=== PATIENT | male | born 1965 | race Caucasian/White ===

== ENCOUNTER 2024-12-16 09:48 | Emergency (ER) | payer OTHER, SELFPAY ==
--- OUTSIDE RECORDS SUMMARY | 2024-12-16 09:49 | XMS_ITS | Clinical Summary ---
Author Organization [facility] Address [address] , [address] [place] [address] Phone Care Team Providers Care Formation Fracturing Operator Name Role Phone [facility] Unavailable Unava ilable Conditions or Problems Problem Name Problem Code Onset Date Status Entry Date Provider Comment Standard Description Annotate Peripheral polyneuropathy [id number] (SNOMED CT) Active 05/25 Jesse Dejesus MD Peripheral nerve disease Medications No information available. Medications Administered No information available. Allergies, Adverse Reactions, Alerts No information available. Results Date Name Value Unit Range Flag Description Internal Other: Authorizatio n - OBS [email or web address] Yes Authoriza tion: Release of Information - Authorize [facility] - Payment and Healthcare Operations ROIAUTHOTHER Yes Authoriz ation: Release of Information - Authorize Others/Insurance - Payment and Healthcare Operations HIECONSENT Yes Consent To Release information to the Health Information Exchange (HIE) [email or web address] Yes Authorizat ion: Authorization for [facility] to leave messages, voicemail, send text messages, send emails AUTHRELHCARE Yes Authoriz ation: Release/Retrieval of Information to/from Healthcare Facilities, Pharmacy Benefit Payers and Providers AUTHPRIVPRAC Yes Authoriz ation: Notice of privacy practices AUTHBENEFIT Yes Authoriza tion: Assignment of Benefits and Payment Agreement Plan of Care No information available. Procedures Code Procedure Name Date Entry Date CPT-10165 Nerve Conduction 13 or more studies 05/25 CPT-02512 EMG with NCS (5+ muscles) - 2 limbs 05/25 Vital Signs No information available. Immunizations No information available. Advance Directives No information available.
--- OUTSIDE RECORDS SUMMARY | 2024-12-16 09:50 | XMS_ITS | Clinical Summary ---
Author Organization [facility] Address [place], [place] [address] Care Team Providers Care Casualty Claims Supervisor Name Role Phone Steven Guerrero MD Unavailable Johnnie Sharma MD Primary Care Provider Allergies Active Allergy Reactions Criticality Noted Date Comments Lisinopril Cough 12/24/2017 Medications rosuvastatin (CRESTOR) 40 mg tabletIndications:H yperlipidemia, unspecified hyperlipidemia type Take 1 Tablet (40 mg) by mouth at bedtime. 90 Tablet 3 4 Active metoprolol succinate (TOPROL XL) 50 mg sustained-release tabletIndications:E ssential hypertension Take 1 Tablet (50 mg) by mouth once daily. 90 Tablet 3 4 Active allopurinoL (ZYLOPRIM) 300 mg tabletIndications:H istory of gout Take 1 Tablet (300 mg) by mouth once daily. 90 Tablet 5 4 Active omeprazole (PRILOSEC) 20 mg Delayed-Release capsuleIndications: Gastroesophageal reflux disease, unspecified whether esophagitis present Take 1 Capsule (20 mg) by mouth once daily before a meal. 90 Capsule 3 4 Active Active Problems Problem Noted Date Diagnosed Date Colon polyp 08/15/2024 Overview (08/15/2024): Colonoscopy 08/2024 large TA, repeat in 3 years Alcohol dependence with unsp ecified alcohol-induced disorder 07/25/2024 Syncope 04/05/2022 Myoclonic jerking 04/05/2022 Orthostatic hypotension 04/05/2022 Hypomagnesemia 04/05/2022 Peripheral neuropathic gait 04/05/2022 Tremor 04/05/2022 Activity intolerance related to fatigue 04/05/20 22 Macrocytic anemia 04/05/2022 Right knee DJD 04/05/2022 Prolonged Q-T interval on ECG 04/05/2022 Vitamin D deficiency 10/03/2021 Hyperlipidemia 06/29/2020 Pre-diabetes 06/29/2020 HTN (hypertension) 01/14/2018 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 Gout, unspecified 09/08/2008 Encounters Date Type Department Care Team Description 10/20/2024 3:10 PM 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 Office Visit [address] [place] [address] Johnnie Sharma MD Derm Problem (Skin lesion on right side of face in methodist area) 10/20/2024 Travel 10/09/2024 Lab Requisition [facility] [phone] Marcio Rubio MD 10/08/2024 Orders Only [facility] Scanner 1 scan: (1-Ord) [facility], EXCISION OF RT FACIAL CYST, 10/08/2024 10/08/[address] [address] Johnnie Sharma MD Appointment Request from Last 3 Months Immunizations Name Administration Dates Next Due COVID-19 vaccine (Tap2print-Bio NTech 30mcg/0.3mL) 12YO+ BIVALENT PF, MDV 01/31/2023 COVID-19 vaccine (Pfizer-Bio NTech 30mcg/0.3mL) PF, MDV 09/27/2021 INFLUENZA, IIV3 PF (AGE >= 6 MO) 09/09/2024 Influenza, IIV4 09/18/2023, 2,08/12/2021,09/07/20 14 Influenza, IIV4 (=>6mos) MDV 08/16/2020,08/18/20 19 Tdap 07/25/2024,07/28/2013 Zoster (Shingrix-RZV, recombinant) 12/01/2021, Family History Medical History Relation Name Comments Good Health Father Heart attack Mother Stroke Mother Good Health Sister Heart failure No Family History Relation Name Status Comments Daughter Alive x1 Father Alive Maternal Grandfather Maternal Grandmother Mother Paternal Grandfather Paternal Grandmother Sister Alive x1 Son Alive x1 Social History Tobacco Use Types Packs/Day Years Used Date Smoking Tobacco: Never Smokeless Tobacco: Never Tobacco Cessation:Counseling Given: Yes Alcohol Use Standard Drinks/Week Comments Yes 0 (1 standard drink = 0.6 oz pur e alcohol) socially - 3 drinks weekly PHQ-2 Answer Date Recorded PHQ-2 TOTAL SCORE 0 09/22/2022 Financial Resource Strain Answer Date R ecorded Difficulty of Paying Living Expenses Not on file 11/05/2021 Difficulty of Paying Living Expenses Not on file 11/05/2021 Sex and Gender Information Value Date Recorded Sex Assigned at Not on file Legal Sex Male 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 Gender Identity Not on file Sexual Orientation Not on file Occupation Industry Job Start Date 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 [employer] Not on file Not on file Not on file laid off 04/2022 Not on file Not on file Not on file Obstetrics History Last Filed Vital Signs Vital Sign Reading Time Taken Comments Blood Pressure 110/70 10/20/2024 3:07 PM 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[employer]ER Pulse 84 10/20/2024 3:07 PM 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[employer]ER Temperature 36.4 C (97.6 F) 09/25/2023 8:35 AM 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[employer]ER Respiratory Rate 14 09/25/2023 3:00 PM 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[employer]ER Oxygen Saturation 96% 07/25/2024 1:24 PM CDT Inhaled Oxygen Concentration - - Weight 89.9 kg (198 lb 3.4 oz) 10/20/2024 3:07 P M 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[employer]ER Height 185.4 cm (6' 1) 10/20/2024 3:07 PM 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[employer]ER Body Mass Index 26.15 10/20/2024 3:07 PM 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[employer]ER Plan of Treatment Upcoming Encounters Date Type Department Care Team (Late st Contact Info) Description 12/19/2024 10:50 AM 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[employer]ER Office Visit [address] [place] [address] Johnnie Sharma MD [address] [place] [address] Scheduled Procedures Name Priority Associated Diagnoses Date/Ti me SURGICAL PROCEDURE (TYPE PROCEDURE DESCRIPTION BELOW) Encounter for screening colonoscopy Health Maintenance Due Date Last Done Comments Pneumococcal series for age 50+ (1 of 2 - PCV) 1986 Depression screening for age 12+ 09/25/2023 09/25/2022, 09/25/2022, 09/22/2022, Additional history exists BMI (ht and wt on same day) for age 18+ 10/20/2025 10/20/2024, 07/25/2024, 07/26/2023, Additional history exists Colonoscopy through age 75 08/13/2027 08/13/2024 Lipids for age 45-75 04/18/2029 04/18/2024, 12/14/2022, 09/22/2022, Additional history exists Tetanus booster 07/25/2034 07/25/2024, 07/28/2013 Zoster (shingles) series for age 50+ Completed 12/01/2021, 08/12/2021 HIV for age 15-65 Completed 09/22/2022 Hepatitis C screening for ag e 18-79 Completed 09/22/2022 Tdap Completed 07/25/2024, 07/28/2013 COVID-19 vaccine series Completed 09/09/20, 09/18/2023, 01/31/2023, Additional history exists Influenza for age 50-64 Completed 09/09/20, 09/18/2023, 08/10/2022, Additional history exists Procedures Procedure Name Priority Date/Time Associated Diagnosis Comments LAB TRACKING EVENT Routine 10/08/2024 11 :00 AM 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[employer]ER PATH TISSUE EXAM Routine 10/08/2024 11:0 0 AM 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ACHER SCAN-OPERATIVE/PROC EDURE REPORT 10/08/2024 12:00 AM 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ACHER COLONOSCOPY SCREENING Routine 08/13/2024 12:00 AM CDT Screen for colon cancer LIPID PANEL W REFLEX MEASURED LDL Routine 04/18/2024 12:51 PM CDT Vitamin D deficiency Hypercholesterolemia ANTI HIV 1/2 Routine 09/22/2022 1:49 PM 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[employer]ER Screening for HIV (human immunodeficiency virus) ANTI HCV Routine 09/22/2022 1:49 PM 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ACHER Need for hepatitis C screening test from Last 3 Months or Most Recently Relevant to Health Maintenance Results * LAB TRACKING EVENT (10/08/2024 11:00 AM 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ACHER) Other (Other) Client Collect / Unknown 10/08/2024 11:00 AM 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ACHER 10/09/2024 6:21 AM 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ACHER us Marcio Rubio MD LAB BILL ONLY Final Resu lt [facility] [address] [place] [address], [place] * PATH TISSUE EXAM (10/08/2024 11:00 AM 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ACHER) Case Report Pathology Report Case: [id number] Authorizing Provider: Marcio Rubio MD Collected: 10/08/2024 1100 Ordering Location: [facility] Received: 10/09/2024 1127 Pathologist: Hortencia Randolph MD Specimen: Right Cheek 10/13/2024 10:21 AM [facility] Final Diagnosis SKIN, RIGHT CHEEK, EXCISION: 1. Inflamed epidermal inclusion cyst, with surrounding fibrosis consistent with partial rupture 2. Negative for malignancy 10/13/2024 10:21 AM [facility] Clinical Information [facility] 10/13/2024 10:21 AM [facility] Gross Description A) Received in formalin, labeled with the patient's name and date of , is a 2.1 x 0.8 x 1.3 cm un-oriented skin ellipse. The specimen is inked green, is serially sectioned and entirely submitted: 1. Tips 2-3. Central portion DS 10/09/2024 10/13/2024 10:21 AM 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ACHER [facility] Microscopic Description The final diagnosis is based on microscopic examination of appropriate sections of all specimens. There is a cystic collection of non-atypical keratinizing squamous epithelium within the dermis. The presence of green ink is confirmed on tissue sections. 10/13/2024 10:21 AM 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ACHER [facility] Additional Information Interpreted at [facility] - [address] [facility] [address], [place] [address] 10/13/2024 10:21 AM 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ACHER [facility] Other (Right Cheek) 10/08/2024 11:00 AM 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ACHER 10/09/2024 11:27 AM 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ACHER us Marcio Rubio MD PATHOLOGY/CYTOLOGY Final R esult [facility] [address] [place] [address], [place] * SCAN-OPERATIVE/PROCEDURE REPORT (10/08/2024 12:00 AM 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ACHER) us Scanner OTHER Final Result * COLONOSCOPY SCREENING (08/13/2024 12:00 AM CDT) us Agustín Escobar MD GI PROCEDURE ORD Final Re sult * LIPID PANEL W REFLEX MEASURED LDL (04/18/2024 12:51 PM CDT) CHOLESTEROL,TOTAL 146 100 - 199 mg/dL 04/18/2024 1:53 PM CDT [facility] Comment: Cholesterol, Total Reference Ranges Desirable <200 mg/dL Borderline 200-239 mg/dL High >=240 mg/dL TRIGLYCERIDES 95 <150 mg/dL 04/18/2024 1:53 PM CDT [facility] HDL CHOLESTEROL 83 >40 mg/dL 1:53 PM CDT [facility] NON-HDL CHOLESTEROL 63 <145 mg/dl 04/18/2024 1:53 PM CDT [facility] CHOL/HDL RATIO 1.76 <4.50 04/18/2024 1:53 PM CDT [facility] LDL CHOLESTEROL 44 <=130 mg/dL 04/18/2024 1:53 PM T [facility] VLDL CHOLESTEROL 19 <=30 mg/dL 04/18/2024 1:53 PM CDT [facility] PROVIDER ORDERED STATUS RANDOM 04/18/2024 1:53 PM CDT [facility] Blood BLOOD SPECIMEN / Unknown Venipuncture / Unknown 04/18/2024 12:51 PM CDT 04/18/2024 12:51 PM CDT Steven Guerrero MD CHEMISTRY Final Resu lt [facility] [address] [place] [address] * ANTI HCV (09/22/2022 1:49 PM 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ACHER) Pathologist [facility] HEPATITIS C ANTIBODY Non-React chrissie Non-React chrissie 09/23/2022 2:44 PM 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ACHER [facility] Comment:Antibodies to HCV no t detected; does not exclude the possibility of exposure to HCV. Blood BLOOD SPECIMEN / Unknown Venipuncture / Unknown 09/22/2022 1:49 PM 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ACHER 09/22/2022 1:53 PM 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ACHER Stephanie Valdez NP SEND OUTS Final Result [facility] [address] [place] [address], [place] * ANTI HIV 1/2 (09/22/2022 1:49 PM 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ACHER) Pathologist [facility] HIV-1/HIV-2 ANTIBODY Non-Reacti ve Non-Reacti ve 09/23/2022 2:41 PM 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ACHER [facility] Comment:HIV-1 p24 and HIV-1/ HIV-2 Ab not detected. Blood BLOOD SPECIMEN / Unknown Venipuncture / Unknown 09/22/2022 1:49 PM 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ACHER 09/22/2022 1:53 PM 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ACHER us Stephanie Valdez DIE REPAIRER TRIMMER DIES SEND OUTS Final Result [facility] [address] [place] [address], from Last 3 Months or Most Recently Relevant to Health Maintenance Insurance [facility] Advance Directives * Full Code (Latest Code Status on File) Date Activated Date Inactivated Comments 04/05/2022 3:06 PM 04/05/2022 11:45 PM Question Answer Comments Code Status Discussion: Unable to Assess Preferences, Provider to review later Care Teams Casualty Claims Supervisor Relationship Specialty Start Date End Date Johnnie Sharma MD [address] [facility] [place] [address] PCP - General Family Practice 10/20/24 Steven Guerrero MD [address] [place] [address] Consulting Physician Nephrology 09/11/23
--- OUTSIDE RECORDS SUMMARY | 2024-12-16 09:50 | XMS_ITS | Continuity of Care Document ---
Author Organization [facility] Address [address] [place] [address] Phone Care Team Providers Care Mat Inspector Name Role Phone Du Lofton DO Unavailable Unavailable Medications Medication Instructions Dosage Effective Dates (start - stop) Status Comments allopurinol 300 mg tablet Denied take 1 tablet by oral route every day - Active Patient needs to contact clinic. colchicine 0.6 mg tablet take 1 Tablet by oral route daily - Active atorvastatin 10 mg tablet take 1 tablet by oral route every day 10 MG - Active lisinopril 10 mg tablet take 1 tablet by oral route every day 10 MG - Active Procedures Procedure Date Office/Outpatient Visit, Est Routine Venipuncture Assay Of Serum Albumin Assay Of Creatinine Transferase (Ast) (Sgot) Alanine Amino (Alt) (Sgpt) Assay Of Blood/Uric Acid Complete Cbc, Automated Drain/Inject, Joint/Bursa, Intermediate Office/Outpatient Visit, New Surgical Trays Routine Venipuncture Rbc Sed Rate, Nonautomated Assay Of Serum Albumin Assay Of Creatinine Transferase (Ast) (Sgot) Alanine Amino (Alt) (Sgpt) Assay Of Blood/Uric Acid Complete Cbc, Automated CCP Antibody Rheumatoid Factor, IGM Rheumatoid Factor, IGG, IGA Advance Directives Directive Yes / No Effective Date File Name No Information Encounters Encounter Description Practice Location Reason(s) For Visit Diagnoses Date Provider Providers Copied on Encounter [facility] , [address], [place], [address], [place] tel:[phone] [facility] , No Information 1 Rolly Sandy. [facility] [address], [place], [address], [place]. tel:[phone] [facility] , [address], [place], [address], [place] tel:[phone] [facility] , No Information 8 Naomi Joseph. [facility] [address], [place], [address], [place]. tel:[phone] Office/Outpa tient Visit, Est [facility] , [address], [place], [address], [place] tel:[phone] [facility] , Gout (chief complaint) Chronic gout, unspecified, with tophus (tophi)High risk medication monitoring 201 7 Naomi Joseph. [facility] [address], [place], [address], [place]. tel:[phone] Referring Provider: Jake Lin, [facility] [address], [place], [address]. tel:[phone] Office/Outpa tient Visit, New [facility] , [address], [place], [address], [place] tel:[phone] [facility] , Nodule evaluation (chief complaint) Joint pain multiple sitesOpen wound of left ankle, initial encounter 7 Naomi Joseph. [facility] [address], [place], [address], [place]. tel:[phone] Referring Provider: Jake Lin, [facility] [address], [place], [address]. tel:[phone] Family History Family Member Type Diagnosis Age At Onset Problem (finding) No family history of Go ut Payers Payer name Insurance type Covered democrat ID Authoriza tion(s) [employer] CI [id number] Social History Type Description Quantity Date Captured Comments Sex Male Smoking Status No Information Chief Complaint And Reason For Visit No Information Reason For Referral Reason For Referral No Information History Of Present Illness Encounter Date Complaint History Of Prese nt Illness Gout Nodule evaluation Functional Status Date Functional Assessmen t No Information Instructions Date Instruction Additional Infor mation No Information Assessments Type Assessment Date No Information Patient Care Teams Name Effective Dates (start - stop) Status Members No Information
[2024-12-16 09:57] VITALS: BP 92/56; PULSE 73; RESP 18; TEMP 36.3; O2SAT 92; BMI 25.3
--- NOTE | 2024-12-16 10:47 | ED_ITS ---
HPI - General Adult General Chief complaint: Weakness Stated complaint: Legs weak, blood in urine Time Seen by Provider: 12/16/24 10:26 History of Present Illness HPI narrative: This 59-year-old male comes in with his . He went to Clinic in [place] and was sent here because of gross hematuria and weakness. He has some chronic conditions with history of recurrent syncope and weight loss over the past couple years. He states that he began to have gross hematuria about a week ago. He does have significant degenerative disease in his right knee and has had some altered gait and difficulty ambulating but things became significantly worse over the past 3 or 4 days. He is able to get up and walk but has to use his arms to brace himself. He does not report any new altered sensation. He states that he does have peripheral neuropathy. He does not report any recent infection or fever. He does report some increased urinary frequency. Related Data Home Medications ?Medication ?Instructions ?Recorded ?Confirmed allopurinol 300 mg tablet 300 mg PO DAILY 12/15/24 12/15/24 metoprolol succinate 50 mg 50 mg PO DAILY 12/15/24 12/15/24 tablet,extended release 24 hr omeprazole 20 mg capsule,delayed 20 mg PO DAILY 12/16/24 12/16/24 release rosuvastatin 40 mg tablet 40 mg PO DAILY 12/16/24 12/16/24 Allergies Allergy/AdvReac Type Severity Reaction Status Date / Time STEPHANIE Inhibitors AdvReac Mild Cough Verified 12/16/24 14:19 Review of Systems Status of ROS: Reports: 10 or more systems reviewed and unremarkable except as noted in History and below Narrative: Constitutional: No fevers, no weight gain or loss. Eyes: No discharge. No vision changes. HENT: No congestion, no sore throat, no ear pain. Cardiovascular: No chest pain, no palpitations. Respiratory: No shortness of breath, no wheezes, no cough. Gastrointestinal: No abdominal pain, no vomiting, no diarrhea. Genitourinary: Increased urinary frequency and gross hematuria. Musculoskeletal: Generalized weakness but more so in the right lower extremity which has significant degenerative disease in the right knee. Skin: No rashes, no pruritis. Neurological: No dizziness, weakness, sensory change, speech change. Endo/Heme/Allergies: No bruising or bleeding. No polydipsia. Pysch: no suicidality, no anxiety, no insomnia. All other systems reviewed and are negative. [facility] Medical History (Updated 12/16/24 @ 16:32 by Burt Queen MD) Pre-diabetes ?R73.03 - Prediabetes (ICD-10) Chronic kidney disease (CKD) stage G3a/A1, moderately decreased glomerular filtration rate (GFR) between 45-59 mL/min/1.73 square meter and albuminuria creatinine ratio less than 30 mg/g ?N18.31 - Chronic kidney disease, stage 3a (ICD-10) Vitamin D deficiency ?E55.9 - Vitamin D deficiency, unspecified (ICD-10) Erectile dysfunction ?N52.9 - Male erectile dysfunction, unspecified (ICD-10) Mixed hyperlipidemia ?E78.2 - Mixed hyperlipidemia (ICD-10) Gout ?M10.9 - Gout, unspecified (ICD-10) GERD (gastroesophageal reflux disease) ?K21.9 - Gastro-esophageal reflux disease without esophagitis (ICD-10) Primary hypertension ?I10 - Essential (primary) hypertension (ICD-10) Surgical History (Updated 12/15/24 @ 20:01 by Elder Andrews MD) Status post total knee replacement, right ?Z96.651 - Presence of right artificial knee joint (ICD-10) History of hand surgery ?Z98.890 - Other specified postprocedural states (ICD-10) Family History Mother Stroke Social History (Updated 12/16/24 @ 14:30 by Brittni Mota ~ RMA, RMA) Narrative: , two kids, unemployed, nonsmoker, four drinks per day What is your current living situation?: declined to answer Problems where you live: declined to answer In the past 12 months, utilities in danger of being shut off: declined to answer In past 12 months, lack of transportation kept you from medical appts, meetings, work, or getting things needed for daily living: declined to answer In the past 12 mos, have been you worried that your food would run out before you had money to buy more?: declined to answer In the past 12 mos, the food you bought just didn't last and you didn't have money to buy more?: declined to answer Smoking Status: Never smoker How often do you have a drink containing alcohol: 4 or more times a week AUDIT-C Alcohol total score: 4 Non-prescribed substance use: denies use How often does anyone, including family, friends and others, physically hurt you : decline to answer How often does anyone, including family, friends and others, insult or talk down to you: decline to answer How often does anyone, including family, friends and others, threaten you with harm: decline to answer How often does anyone, including family, friends and others, scream or curse at you: decline to answer Health Related Social Needs: unsheltered homelessness (Z59.02) Exam Narrative: Exam Narrative: Constitutional: Well-developed, well-nourished, no acute distress. HEENT: Normocephalic, atraumatic. Neck: Normal range of motion. Nontender. Supple. Heart: Regular. No murmurs. Normal rate. Intact distal pulses. Lungs: Clear to auscultation. No chest discomfort. No wheezes, rhonchi, or rales. Abdomen: Normal bowel sounds. Nontender. No rebound tenderness. Genitalia: Deferred. Back: No midline tenderness. Normal range of motion. Extremities: Normal range of motion. No injury. Skin: Intact. No rash. Warm. No erythema or pallor. Neurologic: No altered sensation. No weakness. Alert and oriented. Distal reflexes are intact but not vigorous. Psychiatric: No suicidality. No anxiety or depression. No insomnia. Nursing notes and vitals signs are reviewed. Const: Vital Signs, click to edit/add: Vital Signs - 24 hr 12/16/24 09:57 12/16/24 11:37 12/16/24 14:34 Temperature 97.3 F L Pulse Rate [Pulse Oximeter] 73 87 98 Respiratory Rate 18 16 16 Blood Pressure [Ri ght Upper Arm] 92/56 L 119/82 123/87 Pulse Oximetry 92 93 Oxygen Delivery Me thod Room Air Room Air Course Vital Signs Vital signs: Initial Vital Signs Temperature 97.3 F L 12/16/24 09:57 Temperature Source Temporal Artery Scan 12/16/24 09:57 Pulse Rate 73 12/16/24 09:57 Respiratory Rate 18 12/16/24 09:57 Blood Pressure 92/56 L 12/16/24 09:57 Blood Pressure Mean 68 L 12/16/24 09:57 Pulse Oximetry 92 12/16/24 09:57 Oxygen Delivery Method Room Air 12/16/24 09:57 Vital Signs Temperature 97.3 F L 12/16/24 09:57 Pulse Rate 73 12/16/24 09:57 Respiratory Rate 18 12/16/24 09:57 Blood Pressure 92/56 L 12/16/24 09:57 Pulse Oximetry 92 12/16/24 09:57 Oxygen Delivery Method Room Air 12/16/24 09:57 Temperature 97.3 F L 12/16/24 09:57 Pulse Rate 98 12/16/24 14:34 Respiratory Rate 16 12/16/24 14:34 Blood Pressure 123/87 12/16/24 14:34 Pulse Oximetry 93 12/16/24 14:34 Oxygen Delivery Method Room Air 12/16/24 14:34 Medications Administered Medications: Generic Name Dose Route Start Last Admin Trade Name Freq PRN Reason Stop Dose Admin Sodium Chloride 250 mls @ 250 mls/hr 12/16/24 15:54 12/16/24 16:21 0.9 % Sodium Chloride 250 Ml IV 12/16/24 16:53 250 mls/hr .Q1H ONE Administration Discontinued Medications Generic Name Dose Route Start Last Admin Trade Name Freq PRN Reason Stop Dose Admin Sodium Chloride 500 mls @ 500 mls/hr 12/16/24 10:42 12/16/24 11:46 0.9 % Sodium Chloride 500 Ml IV 12/16/24 11:41 Infused .Q1H ONE Infusion Sodium Chloride 500 mls @ 500 mls/hr 12/16/24 13:53 12/16/24 15:30 0.9 % Sodium Chloride 500 Ml IV 12/16/24 14:52 Infused .Q1H ONE Infusion Medical Decision Making MDM Narrative Medical decision making narrative: This patient comes in with increased weakness and report of gross hematuria. An IV was established and the patient did receive a L of normal saline. He is not fluid overloaded. Lab results returned with significant findings. His sed rate was 60, C-reactive protein at 4.0, AST was elevated to almost 1200 and ALT at around 300. His CK returned markedly elevated at almost 40,000. The patient does not describe any recent injury event or excessive strenuous activity. A CT urogram was obtained and shows mild diverticulitis and 2 small nonobstructive ki dney stones. Otherwise that scan was negative. His elevated CK is a concern for the function of his kidneys. His creatinine has doubled compared to previous value. The patient states that he is making lots of urine which is a great sign given the elevated CK. I did consult with hospitalist at Home and a payment processor. The payment processor is saying that this is most likely due to either alcohol or his wrists of a statin or combination of both. The patient is placed on maintenance IV fluids at 250 mL/hr. He is accepted for transfer at [facility] under the care of Dr. Sue. Lab Data Labs: Lab Results 12/16/24 12/16/24 Range/Units 10:44 10:54 WBC 9.50 (4.50-11.00) K/uL RBC 4.34 (4.30-5.90) m/uL Hgb 14.2 (13.5-17.5) gm/dL Hct 43.2 (37.0-53.0) % MCV 100 (80-100) fL MCH 33 (26-34) pg MCHC 33 (32-36) gm/dL RDW Coeff of Bernardo 12.6 (11.5-15.5) % Plt Count 169 (140-440) K/uL Neut % (Auto) 78.7 H (42.0-72.0) % Lymph % (Auto) 5.2 L (20-44) % Dougherty % (Auto) 15.3 H (0.0-11.0) % Eos % (Auto) 0.3 (0.0-7.0) % Baso % (Auto) 0.2 (0.0-3.0) % Neut # (Auto) 7.50 H (1.7-7.0) K/uL Lymph # (Auto) 0.50 L (0.90-2.90) K/uL Dougherty # (Auto) 1.50 H (0.00-0.90) K/UL Eos # (Auto) 0.03 (0.00-0.50) K/uL Baso # (Auto) 0.02 (0.00-0.30) K/uL Abs Immat Gran (auto) 0.03 (0.00-0.30) K/uL Imm/Tot Granulo (auto) 0.3 % ESR 60 H (2-15) mm/hr Sodium 134 L (135-149) mmol/L Potassium 3.7 (3.6-5.1) mmol/L Chloride 100 (96-114) mmol/L Carbon Dioxide 22 (20-32) mmol/L Anion Gap 12 (7-15) mEq/L BUN 32 H (7-30) mg/dL Creatinine 2.5 H (0.5-1.5) mg/dL Estimated Creat Clear 37.90 Estimated GFR 29 ml/min Glucose 139 H (60-115) mg/dL Calcium 9.3 (8.4-10.6) mg/dL Total Bilirubin 1.1 (0.1-1.5) mg/dL Direct Bilirubin 0.5 (0.0-0.5) mg/dL AST 1136 H (12-35) U/L ALT 291 H (4-50) U/L Alkaline Phosphatase 106 (40-150) U/L Total Creatine Kinase 86028 H (54-186) U/L C-Reactive Protein 4.0 H (0.5-1.0) mg/dL Total Protein 6.5 (6.0-8.3) g/dL Albumin 3.7 (3.3-5.0) g/dL Urine Color [place] A (Yellow) Urine Appearance Cloudy A (Clear) Urine pH 7.0 (5.0-8.5) Ur Specific [place] 1.015 (1.000-1.030) Urine Protein 3+ A (Negative) Urine Glucose (UA) Trace A (Negative) Urine Ketones 1+ A (Negative) Urine Blood 3+ A (Negative) Urine Nitrite Negative (Negative) Urine Bilirubin 1+ A (Negative) Urine Urobilinogen 1.0 (0.2-1.0) Ur Leukocyte Esterase Negative (Negative) Urine RBC 0-2 (0-2) Urine WBC 2-5 (0-5) Ur Squamous Epith Cells Moderate A (None-Few) Amorphous Sediment Many A (None) Other Sediment MODERATE (None) Urine Bacteria Few A (None) Imaging Data Chest x-ray: Radiologist's impression: No acute findings. CT Urogram: Radiologist's impression: 1. Mild acute, uncomplicated diverticulitis of the descending sigmoid colon. 2. Mild circumferential bladder wall thickening which can be seen with cystitis or outlet obstruction secondary to mild prostatomegaly. 3. A few nonobstructing renal calculi bilaterally without hydroureteronephrosis. 4. Additional incidental findings as detailed above. Discharge Plan Discharge Clinical Impression: Rhabdomyolysis Patient Disposition: [facility] Condition: Unchanged Prescriptions: No Action allopurinol 300 mg tablet 300 mg PO DAILY metoprolol succinate 50 mg tablet extended release 24 hr 50 mg PO DAILY omeprazole 20 mg capsule,delayed release(DR/EC) 20 mg PO DAILY rosuvastatin 40 mg tablet 40 mg PO DAILY Follow Up/Referrals: Elder Andrews MD [Primary Care Provider] -
--- OUTSIDE RECORDS SUMMARY | 2024-12-16 10:49 | XMS_ITS | Continuity of Care Document ---
Author Organization [facility] Address [address] [place] [address] Phone Care Team Providers Care Compliance Nurse Name Role Phone Du Lofton DO Unavailable [...] [address], [place], [address], [place] tel:[phone] [facility] , No Information 1 Rolly Sandy. [facility] [address], [place], [address], [place]. tel:[phone] [facility] , [address], [place], [address], [place] tel:[phone] [facility] , No Information 8 Naomi Joseph. [facility] [address], [place], [address], [place]. tel:[phone] Office/Outpa tient Visit, Est [facility] , [address], [place], [address], [place] tel:[phone] [facility] , Gout (chief complaint) Chronic gout, unspecified, with tophus (tophi)High risk medication monitoring 201 7 Naomi Joseph. [facility] [address], [place], [address], [place]. tel:[phone] Referring Provider: Jake Lin, [facility] [address], [place], [address]. tel:[phone] Office/Outpa tient Visit, New [facility] , [address], [place], [address], [place] tel:[phone] [facility] , Nodule evaluation (chief complaint) Joint pain multiple sitesOpen wound of left ankle, initial encounter 7 Naomi Joseph. [facility] [address], [place], [address], [place]. tel:[phone] Referring Provider: Jake Lin, [facility] [address], [place], [address]. tel:[phone] Family History Family Member Type Diagnosis Age At Onset Problem (finding) No family history of Go ut Payers Payer name Insurance type Covered democrat ID Authoriza tion(s) Preferred [employer] CI [id number] Social History Type Description Quantity Date Captured [...]
--- OUTSIDE RECORDS SUMMARY | 2024-12-16 10:49 | XMS_ITS | Clinical Summary ---
Author Organization [facility] Address [address] , [address] [place] [address] Phone Care Team Providers Care Accreditation Manager Name Role Phone [facility] Unavailable Unava ilable Conditions or Problems Problem Name Problem Code Onset Date Status Entry Date Provider Comment Standard Description Annotate Peripheral polyneuropathy [id number] (SNOMED CT) Active 05/25 Jesse Dejesus MD [...] Procedures Code Procedure Name Date Entry Date CPT-95000 Nerve Conduction 13 or more studies 05/25 CPT-38381 EMG with NCS (5+ muscles) - 2 limbs 05/25 Vital Signs No information available. Immunizations No information available. Advance Directives No information available.
--- OUTSIDE RECORDS SUMMARY | 2024-12-16 10:49 | XMS_ITS | Clinical Summary ---
Author Organization [facility] Address [place], [place] [address] Care Team Providers Care Field Gauger Name Role Phone Steven Guerrero MD Unavailable [phone] Johnnie Sharma MD Primary Care Provider Allergies [...] Department Care Team Description 10/20/2024 3:10 PM ENGINEER THIRD ASSISTANT Office Visit [address] [place] [address] Johnnie Sharma MD Derm Problem (Skin lesion on right side of face in anabaptist area) 10/20/2024 Travel 10/09/2024 Lab Requisition [facility] [phone] Marcio Rubio MD 10/08/2024 Orders Only [facility] Scanner 1 scan: (1-Ord) [facility], EXCISION OF RT FACIAL CYST, 10/08/2024 10/08/[address] [address] Johnnie Sharma MD Appointment Request from Last 3 Months Immunizations Name Administration Dates Next Due COVID-19 vaccine (H?REL-Bio NTech 30mcg/0.3mL) 12YO+ BIVALENT PF, MDV 01/31/2023 [...] on file Legal Sex Male 5:23 AM ENGINEER THIRD ASSISTANT Gender Identity Not on file Sexual Orientation Not on file Occupation Industry Job Start Date 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 [employer] Not on file Not on file Not on file laid off 04/2022 Not on file Not on file Not on file Obstetrics History Last Filed Vital Signs Vital Sign Reading Time Taken Comments Blood Pressure 110/70 10/20/2024 3:07 PM ENGINEER THIRD ASSISTANT Pulse 84 10/20/2024 3:07 PM ENGINEER THIRD ASSISTANT Temperature 36.4 C (97.6 F) 09/25/2023 8:35 AM ENGINEER THIRD ASSISTANT Respiratory Rate 14 09/25/2023 3:00 PM ENGINEER THIRD ASSISTANT Oxygen Saturation 96% 07/25/2024 1:24 PM CDT Inhaled Oxygen Concentration - - Weight 89.9 kg (198 lb 3.4 oz) 10/20/2024 3:07 P M ENGINEER THIRD ASSISTANT Height 185.4 cm (6' 1) 10/20/2024 3:07 PM ENGINEER THIRD ASSISTANT Body Mass Index 26.15 10/20/2024 3:07 PM ENGINEER THIRD ASSISTANT Plan of Treatment Upcoming Encounters Date Type Department Care Team (Late st Contact Info) Description 12/19/2024 10:50 AM ENGINEER THIRD ASSISTANT Office Visit [address] [place] [address] Johnnie Sharma MD [address] [place] [address] Scheduled Procedures Name Priority Associated Diagnoses Date/Ti [...] TRACKING EVENT Routine 10/08/2024 11 :00 AM ENGINEER THIRD ASSISTANT PATH TISSUE EXAM Routine 10/08/2024 11:0 0 AM ENGINEER THIRD ASSISTANT SCAN-OPERATIVE/PROC EDURE REPORT 10/08/2024 12:00 AM ENGINEER THIRD ASSISTANT COLONOSCOPY SCREENING Routine 08/13/2024 12:00 AM CDT Screen for colon cancer LIPID PANEL W REFLEX MEASURED LDL Routine 04/18/2024 12:51 PM CDT Vitamin D deficiency Hypercholesterolemia ANTI HIV 1/2 Routine 09/22/2022 1:49 PM ENGINEER THIRD ASSISTANT Screening for HIV (human immunodeficiency virus) ANTI HCV Routine 09/22/2022 1:49 PM ENGINEER THIRD ASSISTANT Need for hepatitis C screening test from Last 3 Months or Most Recently Relevant to Health Maintenance Results * LAB TRACKING EVENT (10/08/2024 11:00 AM ENGINEER THIRD ASSISTANT) Other (Other) Client Collect / Unknown 10/08/2024 11:00 AM ENGINEER THIRD ASSISTANT 10/09/2024 6:21 AM ENGINEER THIRD ASSISTANT us Marcio Rubio MD LAB BILL ONLY Final Resu lt [facility] [address] [place] [address], [place] * PATH TISSUE EXAM (10/08/2024 11:00 AM ENGINEER THIRD ASSISTANT) Case Report Pathology Report Case: [id number] Authorizing Provider: Marcio Rubio MD Collected: 10/08/2024 1100 Ordering Location: [facility] Received: 10/09/2024 1127 Pathologist: Hortencia Randolph MD Specimen: Right Cheek 10/13/2024 10:21 AM [facility] Final Diagnosis SKIN, RIGHT CHEEK, EXCISION: 1. Inflamed epidermal inclusion cyst, with surrounding fibrosis consistent with partial rupture 2. Negative for malignancy 10/13/2024 10:21 AM [facility] Clinical Information [facility] 10/13/2024 10:21 AM [facility] Gross Description A) Received in formalin, labeled with the patient's name and date of , is a 2.1 x 0.8 x 1.3 cm un-oriented skin ellipse. The specimen is inked green, is serially sectioned and entirely submitted: 1. Tips 2-3. Central portion DS 10/09/2024 10/13/2024 10:21 AM ENGINEER THIRD ASSISTANT [facility] Microscopic Description The final diagnosis is based on microscopic examination of appropriate sections of all specimens. There is a cystic collection of non-atypical keratinizing squamous epithelium within the dermis. The presence of green ink is confirmed on tissue sections. 10/13/2024 10:21 AM ENGINEER THIRD ASSISTANT [facility] Additional Information Interpreted at [facility] - [address] [facility] [address], [place] [address] 10/13/2024 10:21 AM ENGINEER THIRD ASSISTANT [facility] Other (Right Cheek) 10/08/2024 11:00 AM ENGINEER THIRD ASSISTANT 10/09/2024 11:27 AM ENGINEER THIRD ASSISTANT us Marcio Rubio MD PATHOLOGY/CYTOLOGY Final R esult [facility] [address] [place] [address], [place] * SCAN-OPERATIVE/PROCEDURE REPORT (10/08/2024 12:00 AM ENGINEER THIRD ASSISTANT) us Scanner OTHER Final Result * COLONOSCOPY SCREENING (08/13/2024 12:00 AM CDT) us Agustín Escobar MD GI PROCEDURE ORD Final Re sult * LIPID PANEL W REFLEX MEASURED LDL (04/18/2024 12:51 PM CDT) CHOLESTEROL,TOTAL 146 100 - 199 mg/dL 04/18/2024 1:53 PM CDT [facility] Comment: Cholesterol, Total Reference Ranges Desirable <200 mg/dL Borderline 200-239 mg/dL High >=240 mg/dL TRIGLYCERIDES 95 <150 mg/dL 04/18/2024 1:53 PM CDT [facility] HDL CHOLESTEROL 83 >40 mg/dL 1:53 PM CDT [facility] NON-HDL CHOLESTEROL 63 <145 mg/dl 04/18/2024 1:53 PM CDT [facility] CHOL/HDL RATIO 1.76 <4.50 04/18/2024 1:53 PM CDT [facility] LDL CHOLESTEROL 44 <=130 mg/dL 04/18/2024 1:53 PM T [facility] VLDL CHOLESTEROL 19 <=30 mg/dL 04/18/2024 1:53 PM CDT [facility] PROVIDER ORDERED STATUS RANDOM 04/18/2024 1:53 PM CDT [facility] Blood BLOOD SPECIMEN / Unknown Venipuncture / Unknown 04/18/2024 12:51 PM CDT 04/18/2024 12:51 PM CDT Steven Guerrero MD CHEMISTRY Final Resu lt [facility] [address] [place] [address] * ANTI HCV (09/22/2022 1:49 PM ENGINEER THIRD ASSISTANT) Pathologist [facility] HEPATITIS C ANTIBODY Non-React chrissie Non-React chrissie 09/23/2022 2:44 PM ENGINEER THIRD ASSISTANT [facility] Comment:Antibodies to HCV no t detected; does not exclude the possibility of exposure to HCV. Blood BLOOD SPECIMEN / Unknown Venipuncture / Unknown 09/22/2022 1:49 PM ENGINEER THIRD ASSISTANT 09/22/2022 1:53 PM ENGINEER THIRD ASSISTANT Stephanie Valdez NP SEND OUTS Final Result [facility] [address] [place] [address], [place] * ANTI HIV 1/2 (09/22/2022 1:49 PM ENGINEER THIRD ASSISTANT) Pathologist [facility] HIV-1/HIV-2 ANTIBODY Non-Reacti ve Non-Reacti ve 09/23/2022 2:41 PM ENGINEER THIRD ASSISTANT [facility] Comment:HIV-1 p24 and HIV-1/ HIV-2 Ab not detected. Blood BLOOD SPECIMEN / Unknown Venipuncture / Unknown 09/22/2022 1:49 PM ENGINEER THIRD ASSISTANT 09/22/2022 1:53 PM ENGINEER THIRD ASSISTANT us Stephanie Valdez ESL INSTRUCTIONAL ASSISTANT SEND OUTS Final Result [facility] [address] [place] [address], from Last 3 Months or Most Recently Relevant to Health Maintenance Insurance [facility] Advance Directives * Full Code (Latest Code Status on File) Date Activated Date Inactivated Comments 04/05/2022 3:06 PM 04/05/2022 11:45 PM Question Answer Comments Code Status Discussion: Unable to Assess Preferences, Provider to review later Care Teams Field Gauger Relationship Specialty Start Date End Date Johnnie Sharma MD [address] [facility] [place] [address] PCP - General Family Practice 10/20/24 Steven Guerrero MD [address] [place] [address] Consulting Physician Nephrology 09/11/23
--- NOTE | 2024-12-16 10:53 | CRLHL7_ITS ---
For Patients: As a result of the Cures Act, medical imaging exams and procedure reports are released immediately into your electronic medical record. You may view this report before your referring provider. If you have questions, please contact your health care provider. INDICATION: WEAKNESS TECHNIQUE: Chest 2 views COMPARISON: None FINDINGS: Incidental nodular density left lung base may be artifactual. No infiltrate or edema. No effusion or pneumothorax. Hypertrophic spurring at the right distal clavicle. Chronic fracture deformity of the left distal clavicle. Cardiac silhouette is not enlarged. IMPRESSION: No acute findings. Dictated by Elder Valadez MD @ 12/16/2024 11:27:51 AM (Electronically Signed)
[2024-12-16] MEDS: 0.9 % SODIUM CHLORIDE 500 ML 500 ML IV ×2 (11:01→14:30)
[2024-12-16 11:04] LABS: Basophils Absolute Auto 0.02 K/uL (0.00-0.30); Basophils Percent Auto 0.2 % (0.0-3.0); Eosinophils Absolute Auto 0.03 K/uL (0.00-0.50); Eosinophils Percent Auto 0.3 % (0.0-7.0); Hematocrit 43.2 % (37.0-53.0); Hemoglobin* 14.2 gm/dL (13.5-17.5); Immature Granulocytes Abs Auto 0.03 K/uL (0.00-0.30); Immature Granulocytes Pct Auto 0.3 %; Lymphocytes Percent Auto 5.2 % (20-44); Mean Corpuscular HGB Conc 33 gm/dL (32-36); Mean Corpuscular Hemoglobin 33 pg (26-34); Mean Corpuscular Volume 100 fL (80-100); Monocytes Percent Auto 15.3 % (0.0-11.0); Neutrophils Percent Auto 78.7 % (42.0-72.0); Platelet Count* 169 K/uL (140-440); RDW Coefficient of Variation % 12.6 % (11.5-15.5); Red Blood Count 4.34 m/uL (4.30-5.90)
[2024-12-16 11:06] LABS: Slide Review Reflex No
[2024-12-16 11:27] LABS: Appearance Urine Cloudy (Clear); Bilirubin Urine 1+ (Negative); Blood Urine 3+ (Negative); Color Urine Orange (Yellow); Glucose Urine Trace (Negative); Ketones Urine 1+ (Negative); Leukocyte Esterase Urine Negative (Negative); Nitrite Urine Negative (Negative); Protein Urine 3+ (Negative); Specific Gravity Urine 1.015 (1.000-1.030)
[2024-12-16 11:37] VITALS: BP 119/82; PULSE 87; RESP 16
[2024-12-16 11:40] LABS: Amorphous Sediment Urine Many; Bacteria Urine Few; RBC Urine 0-2 (0-2); Squamous Epithelial Cell Urine Moderate (None-Few)
[2024-12-16 11:41] LABS: Other Sediment Urine MODERATE
[2024-12-16 11:47] LABS: Erythrocyte SedimentationRate* 60 mm/hr (2-15)
[2024-12-16 12:00] LABS: Albumin* 3.7 g/dL (3.3-5.0); Chloride* 100 mmol/L (96-114); Sodium* 134 mmol/L (135-149)
[2024-12-16 12:01] LABS: Potassium* 3.7 mmol/L (3.6-5.1)
[2024-12-16 12:03] LABS: Creatinine* 2.5 mg/dL (0.5-1.5); Estimated Glomerular Filt Rate 29 ml/min
[2024-12-16 12:04] LABS: Alanine Aminotransferase* 291 U/L (4-50); Alkaline Phosphatase* 106 U/L (40-150); Anion Gap 12 mEq/L (7-15); Bilirubin Direct* 0.5 mg/dL (0.0-0.5); Bilirubin Total* 1.1 mg/dL (0.1-1.5); Blood Urea Nitrogen* 32 mg/dL (7-30); Calcium* 9.3 mg/dL (8.4-10.6); Carbon Dioxide* 22 mmol/L (20-32); Glucose* 139 mg/dL (60-115); Total Protein* 6.5 g/dL (6.0-8.3)
[2024-12-16 12:36] LABS: Aspartate Amino Transferase* 1136 U/L (12-35)
--- NOTE | 2024-12-16 13:53 | CRLHL7_ITS ---
For Patients: As a result of the Century Cures Act, medical imaging exams and procedure reports are released immediately into your electronic medical record. You may view this report before your referring provider. If you have questions, please contact your health care provider. Indication: Blood in urine Technique: CT abdomen/pelvis without and with IV contrast, utilizing 98 mL Isovue 370 Comparison: None Findings: Lower thorax: Unremarkable Abdomen/pelvis: The liver, gallbladder and biliary system, spleen, pancreas, and bilateral adrenal glands are unremarkable in appearance. Nonspecific perinephric stranding. The bilateral kidneys are within normal limits in size and perfuse in a normal fashion. No suspicious enhancing renal masses/lesions. Tiny subcentimeter hypoattenuating lesion at the upper pole of the left kidney, too small to characterize, but likely a benign cyst. There are some tiny nonobstructing renal calculi bilaterally, measuring up to approximately 3 millimeters in the right kidney. No hydroureteronephrosis. There is mild circumferential bladder wall thickening which can be seen with cystitis or outlet obstruction secondary to mild prostatomegaly. Small hiatal hernia. There is no evidence of bowel obstruction. The appendix is not visualized. Short segment circumferential wall thickening of the descending sigmoid colon with a few minimally inflamed adjacent diverticula. No free air, free fluid, or abscess. No abdominopelvic lymphadenopathy. Mild calcific atherosclerosis of the aortoiliac system. Soft tissue/musculoskeletal: Likely remote compression fracture deformity of the L3 vertebral body. Grade 1 anterolisthesis of L5 on L6 secondary to L5 pars defects. Impression: 1. Mild acute, uncomplicated diverticulitis of the descending sigmoid colon. 2. Mild circumferential bladder wall thickening which can be seen with cystitis or outlet obstruction secondary to mild prostatomegaly. 3. A few nonobstructing renal calculi bilaterally without hydroureteronephrosis. 4. Additional incidental findings as detailed above. Please note that all CT scans at this facility use dose modulation, iterative reconstruction, and/or weight-based dosing when appropriate to reduce radiation dose to as low as reasonably achievable. Dictated by Fish Clinton MD @ 12/16/2024 2:43:58 PM (Electronically Signed)
[2024-12-16 14:34] VITALS: BP 123/87; PULSE 98; RESP 16; O2SAT 93
[2024-12-16 15:14] LABS: Creatine Kinase* 39854 U/L (54-186)
[2024-12-16] MEDS: 0.9 % SODIUM CHLORIDE 250 ml 250 ML IV (16:21)
[2024-12-16 22:20] VITALS: BP 114/77; PULSE 88; RESP 16; TEMP 36.8; O2SAT 96
== END 2024-12-16 22:48 | disposition short-term general hospital (02) ==
PROVIDERS: Emergency Provider Emergency Medicine Emergency Medical Services; PCP Family Medicine
DX: M62.82 Rhabdomyolysis (principal)
CPT/HCPCS: 36415; 71046; 74178; 80048; 80076; 81001; 82550; 85025; 85651; 86140; 87086; 99284; J7030; J7050; Q9967

== ENCOUNTER 2024-12-16 22:40 | Outpatient (CLI) | payer OTHER, SELFPAY | END 2024-12-16 22:41 | disposition home or self-care (01) | LOC: AMB 12-17 15:57 | PROVIDERS: PCP Family Medicine; Visit Provider Family Medicine | DX: M62.82 Rhabdomyolysis (principal) | CPT/HCPCS: A0425; A0427 ==

== ENCOUNTER 2024-12-30 15:06 | Outpatient (CLI) | payer OTHER, SELFPAY | END 2024-12-30 15:07 | disposition home or self-care (01) | PROVIDERS: PCP Family Medicine; Visit Provider Family Medicine | DX: R79.89 Other specified abnormal findings of blood chemistry (principal); I10 Essential (primary) hypertension; M62.82 Rhabdomyolysis | CPT/HCPCS: 80048; 82550 ==

== ENCOUNTER 2025-02-10 15:35 | Outpatient (CLI) | payer OTHER, SELFPAY | END 2025-02-10 15:36 | disposition home or self-care (01) | PROVIDERS: PCP Family Medicine; Visit Provider Family Medicine | DX: Z01.818 Encounter for other preprocedural examination (principal); R79.89 Other specified abnormal findings of blood chemistry; R73.03 Prediabetes; E55.9 Vitamin D deficiency, unspecified; I10 Essential (primary) hypertension; N18.31 Chronic kidney disease, stage 3a; E78.2 Mixed hyperlipidemia | CPT/HCPCS: 80053; 80061; 82550; 85025 ==

== ENCOUNTER 2025-07-29 12:04 | Outpatient (CLI) | payer OTHER, SELFPAY | END 2025-07-29 12:05 | disposition home or self-care (01) | PROVIDERS: PCP Family Medicine; Visit Provider Orthopaedic Surgery Hand Surgery | DX: M19.012 Primary osteoarthritis, left shoulder (principal) | CPT/HCPCS: 73200 ==

== ENCOUNTER 2025-09-01 15:11 | Outpatient (CLI) | payer OTHER, SELFPAY | END 2025-09-01 15:12 | disposition home or self-care (01) | PROVIDERS: PCP Family Medicine; Visit Provider Family Medicine | DX: E78.2 Mixed hyperlipidemia (principal); M10.9 Gout, unspecified; N52.9 Male erectile dysfunction, unspecified; I12.9 Hypertensive chronic kidney disease with stage 1 through stage 4 chronic kidney disease, or unspecified chronic kidney disease; N18.31 Chronic kidney disease, stage 3a; R73.03 Prediabetes; Z12.5 Encounter for screening for malignant neoplasm of prostate | CPT/HCPCS: 80048; 80061; 84403; 87086; G0103 ==